=== PATIENT | male | born 1955 | race Two or more races ===

== ENCOUNTER 2023-03-29 07:54 | Emergency (ER) | payer MEDICAID, OTHER, SELFPAY ==
[~2023-03-29] VITALS: Ht 172.7 cm; Wt 59.0 kg
[2023-03-29] MEDS ORDERED: IPRATROPIUM 0.5MG/ALBUTEROL 2.5MG INH SOL UD 3ML (DUONEB) NEB ONE (08:35)
[2023-03-29] MEDS ORDERED: methylPREDNISolone 125MG 2ML VIAL IV ONE (08:35)
[2023-03-29 08:48] LABS: BASO # 0.1 10^3/uL (0.0-0.2); BASO % 0.8 % (0.0-1.0); EOS # 0.2 10^3/uL (0.0-0.5); EOS % 2.7 % (0.0-3.0); HEMATOCRIT 41.9 % (42.0-52.0); HEMOGLOBIN 13.7 g/dl (13.5-17.5); LYMPH # 1.2 10^3/uL (1.5-5.0); LYMPH % 17.7 % (24.0-44.0); MEAN CORPUSCULAR HEMOGLOBIN 28.8 pg (27.0-33.0); MEAN CORPUSCULAR HGB CONC 32.7 g/dl (32.0-36.5); MONO # 0.6 10^3/uL (0.0-0.8); MONO % 9.5 % (2.0-8.0); NEUTROPHILS # 4.6 10^3/uL (1.5-8.5); PLATELET COUNT, AUTOMATED 189 10^3/uL (150-450); RED BLOOD COUNT 4.76 10^6/uL (4.30-6.10); WHITE BLOOD COUNT 6.6 10^3/uL (4.0-10.0)
[2023-03-29 09:06] LABS: VENOUS BASE EXCESS 0.1 (-2.0-2.0); VENOUS HCO3 28.6 MMOL/L (23.0-27.0); VENOUS O2 SATURATION 54.9 % (60.0-80.0); VENOUS PARTIAL PRESSURE CO2 63.8 mmHg (38.0-50.0); VENOUS PARTIAL PRESSURE O2 29.8 mmHg (30.0-50.0); VENOUS STANDARD HCO3 23.5 MMOL/L; VENOUS TOTAL CO2 30.6 MMOL/L (24.0-28.0)
[2023-03-29 09:16] LABS: ALBUMIN 3.4 G/DL (3.2-5.2); ALKALINE PHOSPHATASE 89 U/L (46-116); ALT/SGPT 29 U/L (7.0-40); AST/SGOT 34 U/L (<34); BILIRUBIN,DIRECT 0.3 MG/DL (<0.4); BILIRUBIN,TOTAL 0.7 MG/DL (0.3-1.2); BLOOD UREA NITROGEN 17 MG/DL (9-23); CALCIUM LEVEL 8.8 MG/DL (8.3-10.6); CARBON DIOXIDE LEVEL 33 MMOL/L (20-31); CHLORIDE LEVEL 103 MMOL/L (98-107); GLOMERULAR FILTRATION RATE > 60.0 (>49); GLUCOSE, FASTING 82 MG/DL (74-106); POTASSIUM SERUM 4.6 MMOL/L (3.5-5.1); SODIUM LEVEL 137 MMOL/L (136-145); TOTAL PROTEIN 6.3 G/DL (5.7-8.2)
[2023-03-29 09:19] LABS: THYROID STIMULATING HORMONE 1.685 uIU/ML (0.55-4.78)
[2023-03-29 10:02] LABS: ABG BASE EXCESS 1.8 (-2.0-2.0); ABG HCO3 27.6 MMOL/L (22.0-26.0); ABG O2 SATURATION 93.5 % (95.0-99.0); ABG PARTIAL PRESSURE CO2 47.5 mmHg (35.0-45.0); ABG TOTAL CO2 29.1 MMOL/L (23.0-31.0); ABG pH (ARTERIAL) 7.382 UNITS (7.350-7.450)
[2023-03-29] MEDS ORDERED: PRED20TA PO (10:23)
[2023-03-29] MEDS ORDERED: ALBU6.7H6 INH (10:23)
[2023-03-29 10:30] VITALS: O2SAT 93
[2023-03-29 10:31] VITALS: O2SAT 91
[2023-03-29 11:12] VITALS: BP 174/86; TEMP 96.9
== END 2023-03-29 11:14 | disposition home or self-care (01) ==
LOC: EDBD 07:54 → M ED 07:54
DX: J44.9 Chronic obstructive pulmonary disease, unspecified (principal); I44.4 Left anterior fascicular block; R00.1 Bradycardia, unspecified; Z79.51 Long term (current) use of inhaled steroids; Z79.52 Long term (current) use of systemic steroids
CPT/HCPCS: 36600; 71045; 80048; 80076; 82803; 83605; 83880; 84443; 85025; 87040; 87486; 87581; 87633; 87798; 93005; 93041; 94640; 94760; 96374; 99285; J2930

== ENCOUNTER 2023-04-02 06:39 | Emergency (ER) | payer MEDICARE, OTHER ==
[~2023-04-02] VITALS: Ht 172.7 cm; Wt 54.5 kg
[~2023-04-02 06:39] MED LIST: ALBU6.7H6 INH; PRED20TA PO
[2023-04-02 07:14] LABS: BASO % 0.2 % (0.0-1.0); EOS # 0.1 10^3/uL (0.0-0.5); EOS % 0.8 % (0.0-3.0); HEMATOCRIT 42.8 % (42.0-52.0); HEMOGLOBIN 14.4 g/dl (13.5-17.5); LYMPH # 1.4 10^3/uL (1.5-5.0); LYMPH % 12.9 % (24.0-44.0); MEAN CORPUSCULAR HEMOGLOBIN 29.1 pg (27.0-33.0); MEAN CORPUSCULAR HGB CONC 33.6 g/dl (32.0-36.5); MEAN CORPUSCULAR VOLUME 86.5 fl (80.0-96.0); MONO # 1.2 10^3/uL (0.0-0.8); MONO % 11.6 % (2.0-8.0); NEUTROPHILS # 7.9 10^3/uL (1.5-8.5); NEUTROPHILS % 73.6 % (36.0-66.0); PLATELET COUNT, AUTOMATED 242 10^3/uL (150-450); RED BLOOD COUNT 4.95 10^6/uL (4.30-6.10); WHITE BLOOD COUNT 10.7 10^3/uL (4.0-10.0)
[2023-04-02 07:45] LABS: CK-MB VALUE MASS 2.4 NG/ML (<3.6)
[2023-04-02 07:46] LABS: ALBUMIN 3.3 G/DL (3.2-5.2); ALKALINE PHOSPHATASE 82 U/L (46-116); ALT/SGPT 100 U/L (7.0-40); AST/SGOT 38 U/L (<34); BILIRUBIN,DIRECT 0.4 MG/DL (<0.4); BLOOD UREA NITROGEN 22 MG/DL (9-23); CALCIUM LEVEL 8.9 MG/DL (8.3-10.6); CARBON DIOXIDE LEVEL 33 MMOL/L (20-31); CHLORIDE LEVEL 101 MMOL/L (98-107); CPK CREATINE PHOSPHOKINASE 132 U/L (46-171); CREATININE FOR GFR 0.87 MG/DL (0.70-1.30); GLOMERULAR FILTRATION RATE > 60.0 (>49); GLUCOSE, FASTING 87 MG/DL (74-106); MB/CK RELATIVE INDEX 1.81 (< OR =4); SODIUM LEVEL 138 MMOL/L (136-145); TOTAL PROTEIN 6.4 G/DL (5.7-8.2)
[2023-04-02 07:48] LABS: THYROID STIMULATING HORMONE 1.605 uIU/ML (0.55-4.78)
[2023-04-02] MEDS: IPRATROPIUM 0.5MG/ALBUTEROL 2.5MG INH SOL UD 3ML (DUONEB) NEB PRN ×3 (08:31→09:01)
[2023-04-02] MEDS ORDERED: ISOVUE-370 76% 100ML VIAL As Ordered ONE (08:42)
[2023-04-02 08:58] LABS: ABG BASE EXCESS 3.4 (-2.0-2.0); ABG HCO3 27.7 MMOL/L (22.0-26.0); ABG O2 SATURATION 91.7 % (95.0-99.0); ABG PARTIAL PRESSURE CO2 41.1 mmHg (35.0-45.0); ABG PARTIAL PRESSURE O2 57.9 mmHg (75.0-100.0); ABG STANDARD HCO3 27.3 MMOL/L. (22.0-26.0); ABG pH (ARTERIAL) 7.447 UNITS (7.350-7.450)
[2023-04-02] MEDS ORDERED: AZIT500T5 PO (09:41)
[2023-04-02] MEDS ORDERED: PRED10TA2 PO (09:41)
[2023-04-02 10:17] VITALS: BP 152/88; TEMP 98; O2SAT 93
== END 2023-04-02 10:20 | disposition home or self-care (01) ==
LOC: M ED 06:39
DX: J44.9 Chronic obstructive pulmonary disease, unspecified (principal); I10 Essential (primary) hypertension; F17.210 Nicotine dependence, cigarettes, uncomplicated; F10.10 Alcohol abuse, uncomplicated; Z79.52 Long term (current) use of systemic steroids; Z79.51 Long term (current) use of inhaled steroids; Z79.2 Long term (current) use of antibiotics
CPT/HCPCS: 36415; 36600; 71045; 71275; 80048; 80076; 82550; 82553; 82803; 83605; 83880; 84443; 84484; 85025; 87040; 87486; 87581; 87633; 87798; 93005; 93041; 94640; 94760; 99285; Q9967

== ENCOUNTER 2023-04-05 05:36 | Emergency (ER) | payer MEDICARE, OTHER ==
[~2023-04-05] VITALS: Ht 157.5 cm; Wt 56.8 kg
[~2023-04-05 05:36] MED LIST changes: +AZIT500T5 PO; +PRED10TA2 PO
[2023-04-05] MEDS: IPRATROPIUM 0.5MG/ALBUTEROL 2.5MG INH SOL UD 3ML (DUONEB) NEB PRN (05:55)
[2023-04-05 06:08] LABS: BASO % 0.1 % (0.0-1.0); EOS # 0.1 10^3/uL (0.0-0.5); EOS % 1.2 % (0.0-3.0); HEMATOCRIT 40.3 % (42.0-52.0); HEMOGLOBIN 13.4 g/dl (13.5-17.5); LYMPH # 0.8 10^3/uL (1.5-5.0); LYMPH % 7.6 % (24.0-44.0); MEAN CORPUSCULAR HEMOGLOBIN 29.5 pg (27.0-33.0); MEAN CORPUSCULAR HGB CONC 33.3 g/dl (32.0-36.5); MEAN CORPUSCULAR VOLUME 88.6 fl (80.0-96.0); MONO % 9.4 % (2.0-8.0); NEUTROPHILS # 8.8 10^3/uL (1.5-8.5); NEUTROPHILS % 80.8 % (36.0-66.0); PLATELET COUNT, AUTOMATED 266 10^3/uL (150-450); RED BLOOD COUNT 4.55 10^6/uL (4.30-6.10); WHITE BLOOD COUNT 10.8 10^3/uL (4.0-10.0)
[2023-04-05 06:28] LABS: APPEARANCE, URINE CLEAR (CLEAR); BACTERIA, URINE AUTO NEGATIVE (NEGATIVE); BILIRUBIN, URINE AUTO NEGATIVE (NEGATIVE); BLOOD, URINE BLOOD NEGATIVE (NEGATIVE); COLOR, URINE STRAW (YELLOW); GLUCOSE, URINE (UA) AUTO NEGATIVE (NEGATIVE); KETONE, URINE AUTO NEGATIVE (NEGATIVE); LEUKOCYTE ESTERASE, URINE AUTO NEGATIVE (NEGATIVE); MUCUS, URINE SMALL (NEGATIVE); NITRITE, URINE AUTO NEGATIVE (NEGATIVE); PROTEIN, URINE AUTO NEGATIVE (NEGATIVE); RBC, URINE AUTO 0 /HPF (0-3); SPECIFIC GRAVITY URINE AUTO 1.014 (1.002-1.035); SQUAMOUS EPITHELIAL CELL UR AU 0 /HPF (0-6); UROBILINOGEN, URINE AUTO 0.2 mg/dL (0.0-2.0); WBC, URINE AUTO 0 /HPF (0-3)
[2023-04-05 06:41] LABS: CK-MB VALUE MASS 4.8 NG/ML (<3.6)
[2023-04-05 06:47] LABS: ALKALINE PHOSPHATASE 79 U/L (46-116); ALT/SGPT 82 U/L (7.0-40); AST/SGOT 56 U/L (<34); BILIRUBIN,DIRECT 0.2 MG/DL (<0.4); BILIRUBIN,TOTAL 0.7 MG/DL (0.3-1.2); BLOOD UREA NITROGEN 20 MG/DL (9-23); CALCIUM LEVEL 8.5 MG/DL (8.3-10.6); CARBON DIOXIDE LEVEL 30 MMOL/L (20-31); CHLORIDE LEVEL 104 MMOL/L (98-107); CPK CREATINE PHOSPHOKINASE 135 U/L (46-171); CREATININE FOR GFR 0.85 MG/DL (0.70-1.30); GLOMERULAR FILTRATION RATE > 60.0 (>49); GLUCOSE, FASTING 93 MG/DL (74-106); MB/CK RELATIVE INDEX 3.55 (< OR =4); POTASSIUM SERUM 5.8 MMOL/L (3.5-5.1); SODIUM LEVEL 139 MMOL/L (136-145); TOTAL PROTEIN 6.1 G/DL (5.7-8.2)
[2023-04-05 07:15] VITALS: TEMP 98.6
[2023-04-05] MEDS ORDERED: NIRMATRELVIR/RITONAVIR CO-PACK (EMERGENCY USE AUTH) PO ONE (07:20)
[2023-04-05] MEDS ORDERED: NIRM1TAB14 PO (07:29)
[2023-04-05] MEDS ORDERED: PRED20TA PO (07:30)
[2023-04-05] MEDS ORDERED: CEFD1CAP9 PO (07:30)
[2023-04-05] MEDS ORDERED: MED REC IN PROGRESS XX SCH (08:20)
[2023-04-05] MEDS ORDERED: ALBU8.5H PO (08:33)
[2023-04-05] MEDS ORDERED: HOME MED LIST COMPLETE! XX SCH (08:40)
[2023-04-05 09:15] VITALS: BP 183/82; O2SAT 95
== END 2023-04-05 09:35 | disposition home or self-care (01) ==
LOC: EDBD 05:36 → M ED 05:36
DX: J44.1 Chronic obstructive pulmonary disease with (acute) exacerbation (principal); U07.1 COVID-19; J43.9 Emphysema, unspecified

== ENCOUNTER 2023-04-09 06:57 | Emergency (ER) | payer MEDICARE, OTHER ==
[~2023-04-09] VITALS: Ht 172.7 cm; Wt 54.5 kg
[~2023-04-09 06:57] MED LIST changes: +ALBU8.5H PO; +CEFD1CAP9 PO; +NIRM1TAB14 PO
[2023-04-09 08:06] LABS: CK-MB VALUE MASS 4.2 NG/ML (<3.6)
[2023-04-09 08:07] LABS: MB/CK RELATIVE INDEX 3.62 (< OR =4)
[2023-04-09 08:23] VITALS: BP 160/80; TEMP 97.6; O2SAT 96
[2023-04-09] MEDS ORDERED: ALBU6.7H6 INH (08:52)
== END 2023-04-09 08:54 | disposition home or self-care (01) ==
LOC: M ED 06:57 → EDBD 06:57 → M ED 08:54
DX: U07.1 COVID-19 (principal); J44.9 Chronic obstructive pulmonary disease, unspecified

== ENCOUNTER 2023-06-12 19:31 | Emergency (ER) | payer MEDICARE, OTHER ==
[2023-06-12 19:59] LABS: VENOUS BASE EXCESS -1.1 (-2.0-2.0); VENOUS HCO3 23.5 MMOL/L (23.0-27.0); VENOUS O2 SATURATION 97.4 % (60.0-80.0); VENOUS PARTIAL PRESSURE CO2 39.3 mmHg (38.0-50.0); VENOUS PARTIAL PRESSURE O2 93.1 mmHg (30.0-50.0); VENOUS PH 7.395 UNITS (7.330-7.430); VENOUS STANDARD HCO3 23.5 MMOL/L; VENOUS TOTAL CO2 24.7 MMOL/L (24.0-28.0)
[2023-06-12 20:02] LABS: BASO # 0.1 10^3/uL (0.0-0.2); BASO % 0.6 % (0.0-1.0); EOS % 0.5 % (0.0-3.0); HEMATOCRIT 42.7 % (42.0-52.0); HEMOGLOBIN 14.4 g/dl (13.5-17.5); LYMPH # 1.3 10^3/uL (1.5-5.0); LYMPH % 14.5 % (24.0-44.0); MEAN CORPUSCULAR HEMOGLOBIN 29.6 pg (27.0-33.0); MEAN CORPUSCULAR HGB CONC 33.7 g/dl (32.0-36.5); MEAN CORPUSCULAR VOLUME 87.7 fl (80.0-96.0); MONO % 11.5 % (2.0-8.0); NEUTROPHILS # 6.3 10^3/uL (1.5-8.5); NEUTROPHILS % 72.7 % (36.0-66.0); PLATELET COUNT, AUTOMATED 319 10^3/uL (150-450); RED BLOOD COUNT 4.87 10^6/uL (4.30-6.10); WHITE BLOOD COUNT 8.7 10^3/uL (4.0-10.0)
[2023-06-12 20:16] LABS: D-DIMER QUANT 0.49 ug/mL (<0.5); INR 1.01
[2023-06-12 20:28] LABS: CK-MB VALUE MASS 2.3 NG/ML (<3.6)
[2023-06-12 20:29] LABS: CPK CREATINE PHOSPHOKINASE 120 U/L (46-171); MB/CK RELATIVE INDEX 1.91 (< OR =4)
[2023-06-12 20:30] LABS: ALBUMIN 3.3 G/DL (3.2-5.2); ALKALINE PHOSPHATASE 80 U/L (46-116); ALT/SGPT 17 U/L (7.0-40); AST/SGOT 18 U/L (<34); BILIRUBIN,DIRECT 0.4 MG/DL (<0.4); BILIRUBIN,TOTAL 1.1 MG/DL (0.3-1.2); BLOOD UREA NITROGEN 11 MG/DL (9-23); CALCIUM LEVEL 9.3 MG/DL (8.3-10.6); CARBON DIOXIDE LEVEL 30 MMOL/L (20-31); CHLORIDE LEVEL 104 MMOL/L (98-107); CREATININE FOR GFR 0.85 MG/DL (0.70-1.30); GLOMERULAR FILTRATION RATE > 60.0 (>49); GLUCOSE, FASTING 116 MG/DL (74-106); POTASSIUM SERUM 4.5 MMOL/L (3.5-5.1); SODIUM LEVEL 138 MMOL/L (136-145); TOTAL PROTEIN 6.5 G/DL (5.7-8.2)
[2023-06-12 23:37] LABS: CK-MB VALUE MASS 2.2 NG/ML (<3.6)
[2023-06-12 23:43] LABS: MB/CK RELATIVE INDEX 1.8 (< OR =4)
[2023-06-13] MEDS ORDERED: PRED20TA PO (00:41)
[2023-06-13] MEDS: IPRATROPIUM 0.5MG/ALBUTEROL 2.5MG INH SOL UD 3ML (DUONEB) NEB ONE (00:52)
[2023-06-13 00:59] VITALS: BP 124/88; TEMP 98.8; O2SAT 98
== END 2023-06-13 01:01 | disposition home or self-care (01) ==
LOC: EDBD 19:31 → M ED 19:31
DX: J44.1 Chronic obstructive pulmonary disease with (acute) exacerbation (principal); I45.10 Unspecified right bundle-branch block; Z87.891 Personal history of nicotine dependence; Z79.51 Long term (current) use of inhaled steroids; Z79.2 Long term (current) use of antibiotics; Z79.52 Long term (current) use of systemic steroids

== ENCOUNTER → 2023-06-20 | Outpatient (REF) | payer MEDICARE, MEDICAID ==
[2023-06-20 18:33] LABS: Trichomonas vaginalis (AMP) NOT DETECTED (NEGATIVE)
[2023-06-20 18:37] LABS: BASO # 0.1 10^3/uL (0.0-0.2); EOS # 0.2 10^3/uL (0.0-0.5); HEMATOCRIT 47.1 % (42.0-52.0); HEMOGLOBIN 15.5 g/dl (13.5-17.5); LYMPH # 1.7 10^3/uL (1.5-5.0); LYMPH % 16.4 % (24.0-44.0); MEAN CORPUSCULAR HEMOGLOBIN 29.4 pg (27.0-33.0); MEAN CORPUSCULAR HGB CONC 32.9 g/dl (32.0-36.5); MEAN CORPUSCULAR VOLUME 89.2 fl (80.0-96.0); MONO # 1.3 10^3/uL (0.0-0.8); MONO % 12.7 % (2.0-8.0); NEUTROPHILS % 66.7 % (36.0-66.0); PLATELET COUNT, AUTOMATED 409 10^3/uL (150-450); RED BLOOD COUNT 5.28 10^6/uL (4.30-6.10); WHITE BLOOD COUNT 10.4 10^3/uL (4.0-10.0)
[2023-06-20 18:43] LABS: HEMOGLOBIN A1c 5.3 % (4.0-6.0)
[2023-06-20 18:57] LABS: GC DNA AMPLIFICATION NEGATIVE (NEGATIVE)
[2023-06-20 19:06] LABS: ALBUMIN 3.3 G/DL (3.2-5.2); ALKALINE PHOSPHATASE 83 U/L (46-116); ALT/SGPT 21 U/L (7.0-40); AST/SGOT 15 U/L (<34); BILIRUBIN,TOTAL 0.4 MG/DL (0.3-1.2); BLOOD UREA NITROGEN 17 MG/DL (9-23); CALCIUM LEVEL 9.6 MG/DL (8.3-10.6); CARBON DIOXIDE LEVEL 35 MMOL/L (20-31); CHLORIDE LEVEL 101 MMOL/L (98-107); CHOLESTEROL LEVEL 154 MG/DL (<200); CHOLESTEROL RISK RATIO 2.48 (<5); GLOMERULAR FILTRATION RATE > 60.0 (>49); GLUCOSE, FASTING 79 MG/DL (74-106); HDL CHOLESTEROL 61.9 MG/DL (>40); LDL CHOLESTEROL 67.5 MG/DL (<100); NON-HDL-C 92.1 MG/DL; POTASSIUM SERUM 5.3 MMOL/L (3.5-5.1); SODIUM LEVEL 139 MMOL/L (136-145); TOTAL 25(OH) VITAMIN D 23.6 NG/ML (20.0-100.0); TOTAL PROTEIN 6.2 G/DL (5.7-8.2); TRIGLYCERIDES LEVEL 123 MG/DL (<150)
[2023-06-20 19:07] LABS: THYROID STIMULATING HORMONE 1.765 uIU/ML (0.55-4.78)
[2023-06-20 19:31] LABS: HIV 1&2 SCREEN NEGATIVE (NEGATIVE)
[2023-06-20 19:38] LABS: HEPATITIS C VIRUS ABY INDEX < 0.02 INDEX (<0.8)
== END ==
LOC: M LAB REF 16:25
PROVIDERS: ATTEND Physician Assistant
DX: E55.9 Vitamin D deficiency, unspecified (principal); R06.00 Dyspnea, unspecified; E66.9 Obesity, unspecified; Z79.899 Other long term (current) drug therapy; Z11.3 Encounter for screening for infections with a predominantly sexual mode of transmission; Z72.89 Other problems related to lifestyle

== ENCOUNTER → 2023-08-13 | Outpatient (REF) | payer MEDICARE, MEDICAID ==
[2023-08-13 18:58] LABS: BASO # 0.1 10^3/uL (0.0-0.2); EOS # 0.2 10^3/uL (0.0-0.5); EOS % 2.4 % (0.0-3.0); HEMATOCRIT 48.9 % (42.0-52.0); HEMOGLOBIN 16.1 g/dl (13.5-17.5); LYMPH % 15.9 % (24.0-44.0); MEAN CORPUSCULAR HEMOGLOBIN 28.1 pg (27.0-33.0); MEAN CORPUSCULAR HGB CONC 32.9 g/dl (32.0-36.5); MEAN CORPUSCULAR VOLUME 85.3 fl (80.0-96.0); MONO # 0.8 10^3/uL (0.0-0.8); MONO % 12.4 % (2.0-8.0); NEUTROPHILS # 4.2 10^3/uL (1.5-8.5); NEUTROPHILS % 67.7 % (36.0-66.0); PLATELET COUNT, AUTOMATED 238 10^3/uL (150-450); RED BLOOD COUNT 5.73 10^6/uL (4.30-6.10); WHITE BLOOD COUNT 6.2 10^3/uL (4.0-10.0)
[2023-08-13 19:10] LABS: BLOOD UREA NITROGEN 19 MG/DL (9-23); CALCIUM LEVEL 9.6 MG/DL (8.3-10.6); CARBON DIOXIDE LEVEL 29 MMOL/L (20-31); CHLORIDE LEVEL 104 MMOL/L (98-107); CREATININE FOR GFR 0.85 MG/DL (0.70-1.30); GLOMERULAR FILTRATION RATE > 60.0 (>49); GLUCOSE, FASTING 81 MG/DL (74-106); POTASSIUM SERUM 5.9 MMOL/L (3.5-5.1); SODIUM LEVEL 139 MMOL/L (136-145)
== END ==
LOC: M LAB REF 16:35
PROVIDERS: ATTEND Physician Assistant
DX: R79.9 Abnormal finding of blood chemistry, unspecified (principal); R89.9 Unspecified abnormal finding in specimens from other organs, systems and tissues

== ENCOUNTER → 2023-10-10 | Outpatient (CLI) | payer MEDICARE, MEDICAID | LOC: M RAD 10:05 | PROVIDERS: ATTEND Physician Assistant | DX: R06.00 Dyspnea, unspecified (principal) ==

== ENCOUNTER → 2023-11-03 | Outpatient (CLI) | payer MEDICARE, MEDICAID | LOC: M CARPUL 12:50 | PROVIDERS: ATTEND Physician Assistant | DX: R06.00 Dyspnea, unspecified (principal) ==

== ENCOUNTER → 2024-04-02 | Outpatient (CLI) | payer MEDICARE, MEDICAID ==
[2024-04-02 12:08] LABS: BASO # 0.1 10^3/uL (0.0-0.2); BASO % 0.9 % (0.0-1.0); EOS % 0.5 % (0.0-3.0); HEMATOCRIT 44.2 % (42.0-52.0); HEMOGLOBIN 14.7 g/dl (13.5-17.5); LYMPH # 0.7 10^3/uL (1.5-5.0); LYMPH % 8.3 % (24.0-44.0); MEAN CORPUSCULAR HEMOGLOBIN 28.9 pg (27.0-33.0); MEAN CORPUSCULAR HGB CONC 33.3 g/dl (32.0-36.5); MEAN CORPUSCULAR VOLUME 86.8 fl (80.0-96.0); MONO # 0.7 10^3/uL (0.0-0.8); MONO % 8.5 % (2.0-8.0); NEUTROPHILS # 6.9 10^3/uL (1.5-8.5); NEUTROPHILS % 81.6 % (36.0-66.0); PLATELET COUNT, AUTOMATED 220 10^3/uL (150-450); RED BLOOD COUNT 5.09 10^6/uL (4.30-6.10); WHITE BLOOD COUNT 8.5 10^3/uL (4.0-10.0)
[2024-04-02 13:52] LABS: BLOOD UREA NITROGEN 20 MG/DL (9-23); CALCIUM LEVEL 9.6 MG/DL (8.3-10.6); CARBON DIOXIDE LEVEL 33 MMOL/L (20-31); CHLORIDE LEVEL 101 MMOL/L (98-107); CREATININE FOR GFR 0.81 MG/DL (0.70-1.30); GLOMERULAR FILTRATION RATE > 60.0 (>49); GLUCOSE, FASTING 82 MG/DL (74-106); POTASSIUM SERUM 4.2 MMOL/L (3.5-5.1); SODIUM LEVEL 143 MMOL/L (136-145)
== END ==
LOC: M RAD 10:40 → EDBD 10:40
PROVIDERS: ATTEND Physician Assistant
DX: R06.00 Dyspnea, unspecified (principal)

== ENCOUNTER → 2024-07-09 | Outpatient (CLI) | payer MEDICARE, MEDICAID | LOC: M PLAIMG 09:22 | PROVIDERS: ATTEND Physician Assistant | DX: R06.02 Shortness of breath (principal); Z87.891 Personal history of nicotine dependence ==

== ENCOUNTER → 2024-07-26 | Outpatient (CLI) | payer MEDICARE, MEDICAID | LOC: M PLARAD 09:46 → MERGE 09:46 | PROVIDERS: ATTEND Physician Assistant | DX: R91.8 Other nonspecific abnormal finding of lung field (principal) | CPT/HCPCS: 78815; A9552 ==

== ENCOUNTER → 2024-09-08 | Outpatient (CLI) | payer MEDICARE, MEDICAID ==
[~2024-09-08] MED LIST changes: +ATOR1TAB21 PO; +FLUT1BLS8 INH; +HOME MED LIST COMPLETE! XX SCH; +HYDR-3490 PO; +LIDOCAINE 1% MDV 20 ML VIAL As Ordered ONE; +LOSA25TA13 PO
[2024-09-08 11:00] VITALS: TEMP 97.8
[2024-09-08 11:40] LABS: PLATELET COUNT, AUTOMATED 236 10^3/uL (150-450)
[2024-09-08 11:53] LABS: INR 0.89
[2024-09-08 12:13] LABS: CALCIUM LEVEL 9.8 MG/DL (8.3-10.6); CARBON DIOXIDE LEVEL 34.0 MMOL/L (20-31); CHLORIDE LEVEL 95.0 MMOL/L (98-107); CREATININE FOR GFR 0.95 MG/DL (0.70-1.30); GLOMERULAR FILTRATION RATE 87.7 (>49); POTASSIUM SERUM 4.5 MMOL/L (3.5-5.1); SODIUM LEVEL 138.0 MMOL/L (136-145)
[2024-09-08 15:00] VITALS: BP 151/63; O2SAT 99
== END ==
LOC: M IRPRO 10:53
PROVIDERS: ATTEND Physician Assistant
DX: R91.1 Solitary pulmonary nodule (principal); J95.811 Postprocedural pneumothorax

== ENCOUNTER → 2024-09-16 | Outpatient (CLI) | payer MEDICARE, MEDICAID ==
[~2024-09-16] MED LIST changes: -HOME MED LIST COMPLETE! XX SCH; -LIDOCAINE 1% MDV 20 ML VIAL As Ordered ONE
== END ==
LOC: M RAD 11:24
PROVIDERS: ATTEND Physician Assistant
DX: J93.83 Other pneumothorax (principal)

== ENCOUNTER → 2024-10-04 | Outpatient (CLI) | payer MEDICARE, MEDICAID ==
[~2024-10-04] VITALS: Ht 172.7 cm; Wt 54.9 kg
[2024-10-04 14:15] VITALS: BP 132/79; O2SAT 95
== END ==
LOC: M PAL 14:04
PROVIDERS: ATTEND Physician Assistant
DX: Z51.5 Encounter for palliative care (principal); Z66 Do not resuscitate; C34.32 Malignant neoplasm of lower lobe, left bronchus or lung; R93.89 Abnormal findings on diagnostic imaging of other specified body structures; Z79.02 Long term (current) use of antithrombotics/antiplatelets; Z79.891 Long term (current) use of opiate analgesic

== ENCOUNTER → 2024-10-11 | Outpatient (CLI) | payer MEDICARE, MEDICAID ==
[~2024-10-11] MED LIST changes: +ALBU8.5H
== END ==
LOC: M ONCR 13:01
PROVIDERS: ATTEND General Practice
DX: C34.32 Malignant neoplasm of lower lobe, left bronchus or lung (principal); F17.211 Nicotine dependence, cigarettes, in remission; Z80.3 Family history of malignant neoplasm of breast; Z79.51 Long term (current) use of inhaled steroids; Z79.899 Other long term (current) drug therapy

== ENCOUNTER → 2024-10-12 | Outpatient (CLI) | payer MEDICARE, MEDICAID | LOC: M ONCM 11:50 | PROVIDERS: ATTEND Dietitian, Registered | DX: R91.1 Solitary pulmonary nodule (principal); Z68.1 Body mass index [BMI] 19.9 or less, adult; Z71.3 Dietary counseling and surveillance ==

== ENCOUNTER → 2024-10-15 | Outpatient (CLI) | payer MEDICARE, MEDICAID | LOC: M PLARAD 10:58 | PROVIDERS: ATTEND General Practice | DX: C34.32 Malignant neoplasm of lower lobe, left bronchus or lung (principal) ==

== ENCOUNTER → 2024-10-19 | Outpatient (CLI) | payer MEDICARE, MEDICAID ==
[2024-10-19 09:00] VITALS: TEMP 98.3
[2024-10-19] MEDS: NS (Normal Saline) 0.9% 1,000 ML IV SCH (09:32)
[2024-10-19] MEDS: ceFAZolin SODIUM 2 GM in DEXTROSE 5% (D5W) ADV/MINI-BAG 50 ML IV ONE (09:32)
[2024-10-19] MEDS: MIDAZOLAM INJ 2 MG/2 ML VIAL IV PRN (09:39)
[2024-10-19] MEDS: LIDOCAINE 1% MDV 20 ML VIAL SC SCH (09:53)
[2024-10-19 12:00] VITALS: BP 121/61; O2SAT 96
== END ==
LOC: M IRPRO 08:42
PROVIDERS: ATTEND Specialist
DX: C34.90 Malignant neoplasm of unspecified part of unspecified bronchus or lung (principal)
CPT/HCPCS: 36561; 99152; J0690; J1642; J2250; J3010

== ENCOUNTER 2024-10-20 13:45 | Outpatient (RCR) | payer MEDICARE, MEDICAID ==
[~2024-10-20 13:45] MED LIST changes: -NIRM1TAB14 PO; +NIRM1TAB16 PO
== END 2024-11-07 ==
LOC: M ONCR 13:45
PROVIDERS: ATTEND General Practice
DX: Z51.0 Encounter for antineoplastic radiation therapy (principal); C34.32 Malignant neoplasm of lower lobe, left bronchus or lung

== ENCOUNTER → 2024-11-02 | Outpatient (POV) | payer MEDICARE, MEDICAID ==
[~2024-11-02] VITALS: Ht 167.6 cm; Wt 55.9 kg
[2024-11-02 11:15] VITALS: BP 116/82; O2SAT 96
== END ==
LOC: M IRPOV 11:04
PROVIDERS: ATTEND Registered Nurse School
DX: Z45.2 Encounter for adjustment and management of vascular access device (principal)

== ENCOUNTER → 2024-11-09 | Outpatient (CLI) | payer MEDICARE, MEDICAID ==
[~2024-11-09] MED LIST changes: +LIDO30CR18 TOP; +ONDA-84 PO
== END ==
LOC: M ONCM 13:02
PROVIDERS: ATTEND Dietitian, Registered
DX: R91.8 Other nonspecific abnormal finding of lung field (principal); Z71.3 Dietary counseling and surveillance; Z68.1 Body mass index [BMI] 19.9 or less, adult

== ENCOUNTER → 2024-11-15 | Outpatient (CLI) | payer MEDICARE, MEDICAID ==
[~2024-11-15] VITALS: Ht 172.7 cm; Wt 58.1 kg
[2024-11-15 13:04] VITALS: BP 120/72; O2SAT 98
== END ==
LOC: M PAL 12:31
PROVIDERS: ATTEND Physician Assistant
DX: Z51.5 Encounter for palliative care (principal); Z66 Do not resuscitate; C34.32 Malignant neoplasm of lower lobe, left bronchus or lung; Z79.891 Long term (current) use of opiate analgesic; Z79.52 Long term (current) use of systemic steroids; Z79.899 Other long term (current) drug therapy

== ENCOUNTER 2024-11-22 09:27 | Emergency (ER) | payer MEDICARE, MEDICAID ==
[~2024-11-22] VITALS: Ht 172.7 cm; Wt 118.6 kg
[2024-11-22 10:25] LABS: BASO # 0.0 10^3/uL (0.0-0.2); BASO % 0.5 % (0.0-1.0); EOS # 0.1 10^3/uL (0.0-0.5); EOS % 2.7 % (0.0-3.0); LYMPH # 0.4 10^3/uL (1.5-5.0); LYMPH % 10.5 % (24.0-44.0); MONO # 0.2 10^3/uL (0.0-0.8); MONO % 4.9 % (2.0-8.0); NEUTROPHILS # 3.0 10^3/uL (1.5-8.5); NEUTROPHILS % 80.3 % (36.0-66.0); PLATELET COUNT, AUTOMATED 214 10^3/uL (150-450)
[2024-11-22 10:51] LABS: CALCIUM LEVEL 8.7 MG/DL (8.3-10.6); CARBON DIOXIDE LEVEL 32 MMOL/L (20-31); CHLORIDE LEVEL 103 MMOL/L (98-107); CREATININE FOR GFR 0.83 MG/DL (0.70-1.30); GLOMERULAR FILTRATION RATE > 90.0 (>49); POTASSIUM SERUM 5.2 MMOL/L (3.5-5.1); SODIUM LEVEL 134 MMOL/L (136-145)
[2024-11-22 12:00] VITALS: BP 166/84
[2024-11-22] MEDS ORDERED: MIRA3350 PO (12:03)
[2024-11-22 12:13] VITALS: TEMP 97.6; O2SAT 96
[2024-11-22] MEDS: PATIROMER SORBITEX CALCIUM 8.4GM POWDER PACKET PO ONE (12:14)
[2024-11-22] MEDS: MAGNESIUM CITRATE 300 ML BTL PO ONE (12:15)
== END 2024-11-22 12:28 | disposition home or self-care (01) ==
LOC: M ED 10:52
DX: K59.00 Constipation, unspecified (principal); C34.90 Malignant neoplasm of unspecified part of unspecified bronchus or lung; Z79.51 Long term (current) use of inhaled steroids; Z79.899 Other long term (current) drug therapy

== ENCOUNTER → 2024-12-07 | Outpatient (RCR) | payer MEDICARE, MEDICAID ==
[~2024-12-07] MED LIST changes: +MIRA3350 PO
== END ==
LOC: M ONCR 11-10 08:59
PROVIDERS: ATTEND General Practice
DX: Z51.0 Encounter for antineoplastic radiation therapy (principal); C34.32 Malignant neoplasm of lower lobe, left bronchus or lung

== ENCOUNTER → 2024-12-21 | Outpatient (CLI) | payer MEDICARE, MEDICAID ==
[~2024-12-21] VITALS: Ht 172.7 cm; Wt 56.7 kg
[~2024-12-21] MED LIST changes: +TAMS1CAP17 PO
[2024-12-21 13:09] VITALS: BP 142/86; O2SAT 96
== END ==
LOC: M PAL 12:56
PROVIDERS: ATTEND Physician Assistant
DX: Z51.5 Encounter for palliative care (principal); Z66 Do not resuscitate; C34.90 Malignant neoplasm of unspecified part of unspecified bronchus or lung; Z92.21 Personal history of antineoplastic chemotherapy; Z92.3 Personal history of irradiation; Z79.891 Long term (current) use of opiate analgesic; Z79.02 Long term (current) use of antithrombotics/antiplatelets; Z79.899 Other long term (current) drug therapy; Z79.52 Long term (current) use of systemic steroids

== ENCOUNTER 2024-12-22 09:00 | Outpatient (RCR) | payer MEDICARE, MEDICAID | END 2025-01-07 | LOC: M ONCR 09:00 | PROVIDERS: ATTEND General Practice | DX: Z51.0 Encounter for antineoplastic radiation therapy (principal); C34.32 Malignant neoplasm of lower lobe, left bronchus or lung ==

== ENCOUNTER → 2025-01-14 | Outpatient (CLI) | payer MEDICARE, MEDICAID ==
[~2025-01-14] MED LIST changes: +ISOVUE-370 76% 100 ML VIAL ONE
== END ==
LOC: M PLAIMG 11:30
PROVIDERS: ATTEND Specialist
DX: C34.90 Malignant neoplasm of unspecified part of unspecified bronchus or lung (principal); J43.9 Emphysema, unspecified; R19.8 Other specified symptoms and signs involving the digestive system and abdomen
CPT/HCPCS: 71260; Q9967

== ENCOUNTER → 2025-02-08 | Outpatient (CLI) | payer MEDICARE, MEDICAID ==
[~2025-02-08] MED LIST changes: -ISOVUE-370 76% 100 ML VIAL ONE
== END ==
LOC: M PLARAD 08:10
PROVIDERS: ATTEND Specialist
DX: C34.32 Malignant neoplasm of lower lobe, left bronchus or lung (principal)
CPT/HCPCS: 78815; A9552

== ENCOUNTER 2025-02-11 13:00 | Emergency (ER) | payer MEDICARE, MEDICAID ==
[~2025-02-11] VITALS: Ht 172.7 cm; Wt 59.4 kg
[2025-02-11] MEDS: SODIUM CHLORIDE 0.9% INJ 10 ML SYR IV SCH (13:21)
[2025-02-11 13:32] VITALS: TEMP 96.7
[2025-02-11 13:39] LABS: BASO # 0.1 10^3/uL (0.0-0.2); BASO % 0.8 % (0.0-1.0); EOS # 0.2 10^3/uL (0.0-0.5); EOS % 2.4 % (0.0-3.0); LYMPH # 0.5 10^3/uL (1.5-5.0); LYMPH % 7.1 % (24.0-44.0); MONO # 0.9 10^3/uL (0.0-0.8); MONO % 14.2 % (2.0-8.0); NEUTROPHILS # 5.0 10^3/uL (1.5-8.5); NEUTROPHILS % 75.0 % (36.0-66.0); PLATELET COUNT, AUTOMATED 194 10^3/uL (150-450)
[2025-02-11 14:02] LABS: CALCIUM LEVEL 9.0 MG/DL (8.3-10.6); CARBON DIOXIDE LEVEL 28 MMOL/L (20-31); CHLORIDE LEVEL 102 MMOL/L (98-107); CREATININE FOR GFR 0.73 MG/DL (0.70-1.30); GLOMERULAR FILTRATION RATE > 90.0 (>49); POTASSIUM SERUM 4.3 MMOL/L (3.5-5.1); SODIUM LEVEL 139 MMOL/L (136-145)
[2025-02-11] MEDS ORDERED: ISOVUE-370 76% 100 ML VIAL As Ordered ONE (14:05)
[2025-02-11 14:51] VITALS: BP 159/77; O2SAT 94
[2025-02-11] MEDS: HEPARIN LOCK FLUSH 100 UNITS/ML 3 ML SYRINGE IV ONE (15:32)
== END 2025-02-11 15:52 | disposition home or self-care (01) ==
LOC: M ED 13:00
DX: R07.89 Other chest pain (principal); M79.602 Pain in left arm; I10 Essential (primary) hypertension; E78.5 Hyperlipidemia, unspecified; J44.9 Chronic obstructive pulmonary disease, unspecified; Z87.891 Personal history of nicotine dependence; Z79.51 Long term (current) use of inhaled steroids; Z79.899 Other long term (current) drug therapy
CPT/HCPCS: 36415; 71275; 80048; 84484; 85025; 93005; 99284; J1642; Q9967

== ENCOUNTER → 2025-02-11 | Outpatient (CLI) | payer MEDICARE, MEDICAID ==
[2025-02-11 12:38] VITALS: BP 152/81; TEMP 98.6; O2SAT 96
== END ==
LOC: M IRPRO 12:06
PROVIDERS: ATTEND Specialist
DX: C34.90 Malignant neoplasm of unspecified part of unspecified bronchus or lung (principal); R91.1 Solitary pulmonary nodule; Z53.9 Procedure and treatment not carried out, unspecified reason